=== PATIENT | female | born 1980 | race Caucasian/White ===

== ENCOUNTER 2017-12-22 21:34 | Emergency (ER) | END 2017-12-23 00:50 | disposition home or self-care (01) ==

== ENCOUNTER 2018-01-27 17:12 | Emergency (ER) | END 2018-01-27 19:42 | disposition home or self-care (01) ==

== ENCOUNTER 2018-01-30 11:32 | Emergency (ER) | END 2018-01-30 14:20 | disposition home or self-care (01) ==

== ENCOUNTER 2018-02-09 19:07 | Emergency (ER) | END 2018-02-09 22:15 | disposition home or self-care (01) ==

== ENCOUNTER 2018-03-16 14:14 | Emergency (ER) | END 2018-03-16 19:57 | disposition home or self-care (01) ==

== ENCOUNTER 2018-04-14 17:14 | Emergency (ER) | END 2018-04-14 19:28 | disposition home or self-care (01) ==

== ENCOUNTER 2018-09-13 18:39 | Inpatient (IN) | payer MEDICAID ==
[~2018-09-13] VITALS: Ht 162.6 cm; Wt 75.0 kg
[~2018-09-13 18:39] MED LIST: ONDA4TAB13 PO; PREN-93 PO
[2018-09-13 19:01] VITALS: BP 109/64; PULSE 114; RESP 18; Ht 162.6 cm; Wt 75.0 kg
[2018-09-13] MEDS ORDERED: LACTATED RINGER'S 1,000 ML IV PRN (19:15)
[2018-09-13] MEDS ORDERED: METHYLERGONOVINE 0.2 MG INJ IM PRN (19:30)
[2018-09-13] MEDS ORDERED: LIDOCAINE 1% (MPF) 30 ML INJ INJ PRN (19:30)
[2018-09-13] MEDS ORDERED: OXYTOCIN 30 UNITS/LR 500 ML IV SCH ×2 (19:30)
[2018-09-13] MEDS ORDERED: CARBOPROST 250 MCG INJ IM PRN (19:30)
[2018-09-13] MEDS ORDERED: OXYTOCIN 30 UNITS/LR 500 ML IV PRN (19:30)
[2018-09-13] MEDS ORDERED: MISOPROSTOL 200 MCG TAB PR PRN (19:30)
[2018-09-13] MEDS: LACTATED RINGER'S 1,000 ML IV SCH (19:43)
[2018-09-14] MEDS ORDERED: AMPICILLIN 2 GM/NS (PMX) 100 ML IV ONE (00:30)
[2018-09-14] MEDS: LACTATED RINGER'S 1,000 ML IV SCH ×2 (04:15→11:15)
[2018-09-14] MEDS: AMPICILLIN 1 GM/NS (PMX) 50 ML IV SCH ×4 (04:51→16:30)
[2018-09-14] MEDS ORDERED: OXYTOCIN 30 UNITS/LR 500 ML IV SCH ×2 (08:00→20:25)
[2018-09-14] MEDS ORDERED: FENTAnyl 2MCG/ML-ROPIV 0.2% 100 ML ONE (13:11)
--- NOTE | 2018-09-14 13:31 | PREAC ---
Date/Time of Note Date/Time of Note DATE: 09/14/18 TIME: 13:30 Anesthesia Eval and Record Evaluation Time Pre-Procedure Interview DATE: 09/14/18 TIME: 13:30 Age 38 Sex female NPO: 8 hrs Preoperative diagnosis Labor Pain Planned procedure Labor Epidural Past Medical History Past Medical History: Includes Heme: Anemia : : (4), Para: (3), Gestational age: (41) Surgery & Anesthesia Issues No known issue Meds Anticoagulation: No Beta Estefany within 24 hr: No Reason Beta Estefany not given: Pt. not on B-Estefany Reported Medications Ondansetron Hcl* (Zofran*) 4 Mg Tab, 4 MG PO NEEDED PRN for NAUSEA AND OR VOMITING, TAB 04/14/18 Vit No.124/Iron/FA ( Vitamin Tablet) 1 Each Tablet, 1 EACH PO DAILY, TAB 04/14/18 Current Medications Lactated Ringer's 1,000 ml @ 125 mls/hr Q8H IV Last administered on 09/14/18at 04:15; Admin Dose 125 MLS/HR; Start 09/13/18 at 19:15 Lidocaine (Xylocaine 1% (Mpf)) 30 ml ONCE PRN INJ .EPISIOTOMY; Start 09/13/18 at 19:30 Oxytocin/Lactated Ringer's 500 ml @ 500 mls/hr ONCE POST IV ; Start 09/13/18 at 19:30 Oxytocin/Lactated Ringer's 500 ml @ 125 mls/hr POST IV ; Start 09/13/18 at 19:30 Lactated Ringer's 1,000 ml @ 2,000 mls/hr Q30M PRN IV .ANESTHESIA Last administered on 09/14/18at 12:34; Admin Dose 2,000 MLS/HR; Start 09/13/18 at 19:15 Oxytocin/Lactated Ringer's 500 ml @ 0 mls/hr ONCE PRN IV .VAGINAL BLEEDING; Start 09/13/18 at 19:30 Methylergonovine Maleate (Methergine) 0.2 mg ONCE PRN IM .VAGINAL BLEEDING; Start 09/13/18 at 19:30 Carboprost Tromethamine (Hemabate) 250 mcg ONCE PRN IM .VAGINAL BLEEDING; Start 09/13/18 at 19:30 Misoprostol (Cytotec) 1,000 mcg ONCE PRN IN .VAGINAL BLEEDING; Start 09/13/18 at 19:30 Ampicillin 50 ml @ 100 mls/hr Q4H IV Last administered on 09/14/18at 09:13; Admin Dose 100 MLS/HR; Start 09/14/18 at 04:30 Oxytocin/Lactated Ringer's 500 ml @ 0 mls/hr FOR AUGMENTATION IV Last administered on 09/14/18at 08:17; Admin Dose 1 MLS/HR; Start 09/14/18 at 08:00 Meds reviewed: Yes Allergies Coded Allergies: morphine (Verified Allergy, Unknown, itchyness, 04/14/18) Allergies Reviewed: Yes Labs/Studies Labs Reviewed: Reviewed by anesthesiologist Result Diagram: 09/13/181939 Laboratory Tests 09/13/18 19:40 Blood Bank Test 09/13/18 19:40 Antibody Screen NEGATIVE Blood Type O POSITIVE Rh Immune Globulin Candidate NO test: N/A Studies: ECG (n/a), CXR (n/a) Pre-procedure Exam Last vitals Vital Signs Date Temp Pulse Resp B/P (MAP) Pulse Ox O2 O2 Flow FiO2 Time Delivery Rate 09/13/18 98.3 114 18 109/64 19:01 (79) Airway: Adequate mouth opening, Adequate thyromental dist Mallampati: Mallampati II Teeth: Normal Lung: Normal Heart: Normal ASA Physical Status ASA physical status: 2 Emergency: None Planned Anesthetic Neuraxial: Epidural Planned Pain Management Epidural Pre-operative Attestations Prior to commencing anesthesia and surgery, the patient was re-evaluated, there was verification of: *The patient's identity *The results of appropriate recent lab work and preoperative vital signs *The above evaluation not changing prior to induction *Anesthetic plan, risk benefits, alternative and complications discussed with patient/family; questions answered; patient/family understands, accepts and wishes to proceed. SAMUEL RIDDLE MD Sep 14, 2018 13:31
--- NOTE | 2018-09-14 13:33 | PAC ---
Date/Time of Note Date/Time of Note DATE: 09/14/18 TIME: 13:32 Post-Anesthesia Notes Post-Anesthesia Note Last documented vital signs Vital Signs Date Temp Pulse Resp B/P (MAP) Pulse Ox O2 O2 Flow FiO2 Time Delivery Rate 09/14/18 98.2 114 18 109/64 100 room air 13:27 (79) Activity: WNL Respiratory function: WNL Cardiovascular function: WNL Mental status: Baseline Pain reasonably controlled: Yes Hydration appropriate: Yes Nausea/Vomiting absent: Yes SAMUEL RIDDLE MD Sep 14, 2018 13:32
[2018-09-14] MEDS ORDERED: FENTAnyl 2MCG/ML-ROPIV 0.2% 100 ML BAG EPI SCH (14:00)
[2018-09-14] MEDS ORDERED: NALOXONE (0.4 MG/ML) INJ IV PRN (14:00)
--- NOTE | 2018-09-14 16:50 | HP ---
Date/Time of Note Date/Time of Note DATE: 09/14/18 TIME: 16:49 OB - History Hx of Present Free Text/Dictation at term inactive labor : 3 Para: 2 Care: Good Care Ultrasounds: Normal mid trimester US Obstetrical Complications: None Medical Complications: None Past Family/Social History * Past Medical, Surgical, Family and Obstetric Histories reviewed from chart. OB Admission Exam Vital Signs Vital Signs Vital Signs Date Temp Pulse Resp B/P (MAP) Pulse Ox O2 O2 Flow FiO2 Time Delivery Rate 09/13/18 98.3 114 18 109/64 19:01 (79) Physical Exam HEENT: WNL Heart: Rhythm Normal Lungs: Clear, Equal Abdomen: WNL Extremities: Normal Reflexes: Normal Cervical Dilatation: 10cm Effacement: 100% Station: +3 Amniotic Fluid: Clear Heart Rate: 130's Accelerations: Accelerations Present Decelerations: No Decelerations Contractions on Admission: None Intensity: Moderate Last 72 hours Lab Results CBC & BMP 09/13/18 19:40 OB Assessment/Plan Reason for admission: active labor Plan: Expectant Management TRICIA TRAN MD Sep 14, 2018 16:50
--- NOTE | 2018-09-14 16:52 | LDN ---
Date/Time of Note Date/Time of Note DATE: 09/14/18 TIME: 16:51 Delivery Summary Weeks of Gestation 40 Meconium: none Episiotomy: No Perineal laceration: 1 Anesthesia type: Epidural Estimated blood loss: 300 Sponge & Needle done & correct: Yes All needle counts correct: Yes Any foreign bodies felt in the: No TRICIA TRAN MD Sep 14, 2018 16:52
[2018-09-14 19:30] VITALS: BP 90/53; PULSE 83; RESP 18
[2018-09-14] MEDS: LACTATED RINGER'S 1,000 ML IV* SCH (20:25)
[2018-09-14] MEDS ORDERED: ZOLPIDEM 5 MG TAB PO PRN (20:30)
[2018-09-14] MEDS ORDERED: OXYTOCIN 30 UNITS/LR 500 ML IV PRN (20:30)
[2018-09-14] MEDS ORDERED: HYDROCODONE/APAP (5/325) TAB PO PRN (20:30)
[2018-09-14] MEDS ORDERED: WITCH HAZEL/GLYCERIN PAD PR PRN (20:30)
[2018-09-14] MEDS ORDERED: MISOPROSTOL 200 MCG TAB PR PRN (20:30)
[2018-09-14] MEDS ORDERED: SENNA/DOCUSATE NA (8.6MG/50MG) TAB PO PRN (20:30)
[2018-09-14] MEDS ORDERED: BENZOCAINE 20% 56 ML SPRAY TOP PRN (20:30)
[2018-09-14] MEDS ORDERED: DIPHENHYDRAMINE 25 MG CAP PO PRN (20:30)
[2018-09-14] MEDS ORDERED: METHYLERGONOVINE 0.2 MG INJ IM PRN (20:30)
[2018-09-14] MEDS ORDERED: MAGNESIUM HYDROXIDE 30ML CUP PO PRN (20:30)
[2018-09-14] MEDS ORDERED: LANOLIN HPA 1 PKT TOP PRN (20:30)
[2018-09-14] MEDS ORDERED: ACETAMINOPHEN 325 MG TAB PO PRN (20:30)
[2018-09-14] MEDS ORDERED: CARBOPROST 250 MCG INJ IM PRN (20:30)
[2018-09-14] MEDS: IBUPROFEN 800 MG TAB PO SCH (23:57)
[2018-09-15 04:00] VITALS: BP 91/52; PULSE 65; RESP 17
[2018-09-15] MEDS: LACTATED RINGER'S 1,000 ML IV* SCH (04:25)
[2018-09-15] MEDS: IBUPROFEN 800 MG TAB PO SCH ×4 (05:47→23:43)
[2018-09-15 09:10] VITALS: BP 86/57; PULSE 70; RESP 17
[2018-09-15 11:56] VITALS: BP 96/54; PULSE 72; RESP 20
[2018-09-15 15:30] VITALS: BP 94/51; PULSE 71; RESP 18
--- NOTE | 2018-09-15 19:39 | PN ---
Date/Time of Note Date/Time of Note DATE: 09/15/18 TIME: 19:38 OB Subjective Subjective Subjective PPD# 1 Patient is doing well. She denies nausea, vomiting, shortness of breath, chest pain, headache. She has been ambulating without difficulty, tolerating regular diet. Pain is well controlled on current medications OB Objective Objective Objective VS - Last 72 Hours, by Label Date Temp Pulse Resp B/P (MAP) Pulse Ox O2 O2 Flow FiO2 Time Delivery Rate 09/15/18 98.1 71 18 94/51 (65) 15:30 09/15/18 97.9 72 20 96/54 (68) Room Air 11:56 09/15/18 97.5 70 17 86/57 (67) Room Air 09:10 09/15/18 97.9 65 17 91/52 (65) Room Air 04:00 09/14/18 97.9 83 18 90/53 (65) Room Air 19:30 09/13/18 98.3 114 18 109/64 19:01 (79) General: AAO X 3, comfortable, NAD, appropriate mood and affect. ABD: +BS. Soft, non-tender. Uterus 2 cm below umbilicus Flank: No CVA tenderness (B/L) LE: Mild edema. No clubbing, cyanosis, thigh or calf tenderness (B/L). Homans 'sign is negative OB Assessment/Plan Other plan: 38 years old -0-0-3 s/p normal vaginal delivery. PPD#1 - AF, VSS - Contraception methods with R/B/A/FR discussed - Continue care - Discharge home tomorrow - Rx and instruction given - Follow up in 2 and 6 weeks with her primary OB GRICEL WESLEY Sep 15, 2018 19:39
--- NOTE | 2018-09-15 19:40 | DS ---
Date/Time of Note Date/Time of Note DATE: 09/15/18 TIME: 19:39 Obstetrical Discharge Record Final Diagnosis Final Diagnosis: Term delivered Other Final Diagnosis 38 years old -0-0-3 s/p normal vaginal delivery at 40 weeks. PPD#1. course is unremarkable she is ambulating and tolerating regular diet she is voiding without difficulty pain is controlled on current medication - AF, VSS - Contraception methods with R/B/A/FR discussed - Continue care - Discharge home tomorrow - Rx and instruction given - Follow up in 2 and 6 weeks with her primary OB Condition on Discharge Physical Assessment Last Vitals: Vital Signs Date Temp Pulse Resp B/P (MAP) Pulse Ox O2 O2 Flow FiO2 Time Delivery Rate 09/15/18 98.1 71 18 94/51 (65) 15:30 09/15/18 Room Air 11:56 Voiding: Yes Bowel Movement: Yes Breast: Soft, non-tender Fundus: Firm Calf Tenderness: No Patient Condition: Stable GRICEL WESLEY Sep 15, 2018 19:40
[2018-09-15 20:00] VITALS: BP 89/57; PULSE 72; RESP 18
[2018-09-16 03:50] VITALS: BP 102/51; PULSE 63; RESP 19
[2018-09-16] MEDS: IBUPROFEN 800 MG TAB PO SCH (05:42)
[2018-09-16 08:20] VITALS: BP 100/60; PULSE 75; RESP 18
[2018-09-16] MEDS ORDERED: DIPHTH/TET/ACEL PERTUSS (ADULT) 0.5 ML VIAL IM* ONE (09:00)
[2018-09-16] MEDS ORDERED: VARICELLA VACCINE LIVE/PF 1,350 UNIT/0.5 ML ML SC* ONE (09:00)
[2018-09-16] MEDS ORDERED: MEASLES,MUMPS,RUBELLA VACCINE INJ SC* ONE (09:00)
--- NOTE | 2018-09-17 13:02 | DELSUM ---
Delivery Summary A-C Datetime Report Generated by CPN: 09/17/2018 13:01 DELIVERY PERSONNEL Truck Technician: Jeanineemanarmond, [place] MATERNAL INFORMATION Delivery Anesthesia: Epidural Medications in Delivery: LR W/ 30 UNITS PITOCIN Delivery QBL (ml): 372 Placenta Cultured: No Maternal Complications: None LABOR SUMMARY EDC: 09/28/2018 00:00 No. Babies in Womb: 1 Attempted: No Labor Anesthesia: Epidural LABOR INFORMATION Onset of Labor: 09/13/2018 18:55 Complete Dilatation: 09/14/2018 16:08 Oxytocin: Augmentation Group B Beta Strep: Negative Antibiotics # of Doses: 3 Antibiotics Time of Last Dose: 09/14/2018 09:12 Steroids Given: None Reason Steroids Not Administered: Not Applicable MEMBRANES Membranes Rupture Method: Spontaneous Rupture of Membranes: 09/14/2018 14:22 Length of Rupture (hr): 2.37 Amniotic Fluid Color: Clear Amniotic Fluid Amount: Small Amniotic Fluid Odor: None STAGES OF LABOR Stage 1 hr: 21 Stage 1 min: 13 Stage 2 hr: 0 Stage 2 min: 36 Stage 3 hr: 0 Stage 3 min: 0 Total Time in Labor hr: 21 Total Time in Labor min: 49 VAGINAL DELIVERY Episiotomy: None Laceration Extension: First Degree Laceration Type: Perineal Laceration Repair: Yes Initial Vag Sponge Count: 10 Final Vag Sponge Count: 10 Initial Vag Sharps Count: 1 Final Vag Sharps Count: 1 Sponge Count Correct: Yes; Vaginal Sweep Performed Sharps Count Correct: Yes BABY A INFORMATION Infant Delivery Date/Time: 09/14/2018 16:44 Method of Delivery: Vaginal Born in Route : No : N/A Forceps: N/A Vacuum Extraction: N/A Shoulder Dystocia : N/A SHOULDER DYSTOCIA BABY A Infant Delivery Date/Time: 09/14/2018 16:44 PRESENTATION/POSITION BABY A Presentation: Cephalic Cephalic Presentation: Vertex Vertex Position: Left Occipital Anterior Breech Presentation: N/A PLACENTA INFORMATION BABY A Placenta Delivery Time : 09/14/2018 16:44 Placenta Method of Delivery: Spontaneous Placenta Status: Delivered SCORES BABY A Heart Rate 1 min: >100 bpm Resp Effort 1 min: Good Cry Reflex Irritability 1 min: Cough/Sneeze/Pulls Away Muscle Tone 1 min: Active Motion Color 1 min: Body [place], Extremit Blue Resuscitation Effort 1 min: Tactile Stimulation SCORE 1 MIN: 9 Heart Rate 5 min: >100 bpm Resp Effort 5 min: Good Cry Reflex Irritability 5 min: Cough/Sneeze/Pulls Away Muscle Tone 5 min: Active Motion Color 5 min: Body [place], Extremit Blue Resuscitation Effort 5 min: Tactile Stimulation SCORE 5 MIN: 9 INFANT INFORMATION BABY A Gestational Age at Delivery: 38.0 Gestational Status: Early Term- 37- 38.6 Weeks Infant Outcome : Liveborn Infant Condition : Stable Sex: Female IDENTIFICATION/MEDS BABY A ID Band Number: [id number] ID Band Location: Right Leg; Left Arm Sensor Applied: Yes Sensor Number: [id number] Sensor Location : Cord Clamp Vitamin K Given : Not Given Erythromycin Given: Not Given WEIGHT/LENGTH BABY A Birthweight (gm): 3315 Infant Weight (lb): 7 Weight (oz): 5 Length (in): 19.50 Length (cm): 49.53 CORD INFORMATION BABY A No. Cord Vessels: 3 Nuchal Cord : N/A Infant Suction: Mouth; Nose ASSESSMENT BABY A Infant Complications: None Physical Findings at Delivery: Within Normal Limits Infant Respirations: Appears Normal Pocket Setter Lockstitch/ALS Called : No Infant Care By: PATRICIA CARTAGENA Transferred To: Remains with Mother
== END 2018-09-16 12:55 | disposition home or self-care (01) | DRG 807 ==
LOC: OBT 18:39 → L-D 18:40 → OBT 19:14 → L-D 21:29 → PP1 09-14 18:50
PROVIDERS: ADMIT Obstetrics & Gynecology; ATTEND Obstetrics & Gynecology
PROC: 10E0XZZ Delivery of Products of Conception, External Approach (ICD-10-PCS; principal; 2018-09-14)
PROC: 0HQ9XZZ Repair Perineum Skin, External Approach (ICD-10-PCS; 2018-09-14)
DX: O48.0 Post-term pregnancy (principal); Z37.0 Single live birth; O70.0 First degree perineal laceration during delivery; Z3A.40 40 weeks gestation of pregnancy
CPT/HCPCS: 62322; 85025; 85610; 85730; 86592; 86850; 86900; 86901; 87340; 90716; G0463; J0290; J2590; J3010; J7120

== ENCOUNTER 2018-11-02 11:48 | Emergency (ER) | payer MEDICAID ==
[~2018-11-02] VITALS: Ht 162.6 cm; Wt 68.1 kg
[~2018-11-02 11:48] MED LIST changes: -ONDA4TAB13 PO
[2018-11-02 11:49] VITALS: Ht 162.6 cm; Wt 68.1 kg
[2018-11-02] MEDS ORDERED: SOD CHLORIDE 0.9% 1,000 ML IV STA (12:02)
[2018-11-02] MEDS ORDERED: ONDANSETRON 4 MG INJ IV STA (12:02)
[2018-11-02] MEDS ORDERED: MECLIZINE 12.5 MG TAB PO ONE (12:30)
[2018-11-02] MEDS ORDERED: CEPH-443 PO (13:59)
[2018-11-02] MEDS ORDERED: MECL12.574 PO (13:59)
[2018-11-02] MEDS ORDERED: ONDA4TAB14 PO (13:59)
[2018-11-02 14:05] VITALS: BP 104/67; PULSE 59; RESP 18
--- NOTE | 2018-11-02 14:12 | ERD ---
ER Documentation Chief Complaint Chief Complaint n/v and dizziness x 1 hour HPI 38-year-old female presenting with dizziness and nausea. Patient states that earlier today the room suddenly started spinning and she had multiple episodes of vomiting. She denies any fever. Has not taken medications for symptoms. Denies chest pain or shortness of breath. Denies any fevers. Denies other medical problems. NKDA. Surgical history denies. Social history denies ROS All systems reviewed and are negative except as per history of present illness. Medications Home Meds Active Scripts Cephalexin* (Keflex*) 500 Mg Capsule, 500 MG PO QID for 7 Days, CAP Prov:LAVON AGUSTIN PA-C 11/02/18 Ondansetron (Ondansetron Odt) 4 Mg Tab.rapdis, 4 MG PO Q6H PRN for NAUSEA AND/OR VOMITING, #10 TAB Prov:LAVON AGUSTIN PA-C 11/02/18 Meclizine Hcl* (Antivert*) 12.5 Mg Tab, 12.5 MG PO Q6H PRN for DIZZINESS, #20 TAB Prov:LAVON AGUSTIN PA-C 11/02/18 Reported Medications Vit No.124/Iron/FA ( Vitamin Tablet) 1 Each Tablet, 1 EACH PO DAILY, TAB 04/14/18 Allergies Allergies: Coded Allergies: morphine (Verified Allergy, Unknown, itchyness, 04/14/18) PMhx/Soc History of Surgery: Yes (ECTOPIC 2010) Anesthesia Reaction: No Hx Neurological Disorder: No Hx Respiratory Disorders: No Hx Cardiac Disorders: Yes (ARRHYTHMIAS ) Hx Psychiatric Problems: No Hx Miscellaneous Medical Probl: Yes (HYPERTHYROID) Hx Alcohol Use: No Hx Substance Use: No Hx Tobacco Use: No FmHx Family History: No diabetes, No coronary disease, No other Physical Exam Vitals Vital Signs Date Temp Pulse Resp B/P (MAP) Pulse Ox O2 O2 Flow FiO2 Time Delivery Rate 11/02/18 98.1 59 18 104/67 98 Room Air 14:05 (79) 11/02/18 98.0 84 19 132/81 98 11:49 (98) Physical Exam GENERAL: The patient is well-appearing, well-nourished, in no acute distress HEENT: Atraumatic. Conjunctivae are pink. Pupils equal, round, and reactive to light. There is no scleral icterus. Tympanic membranes clear bilaterally. Oropharynx clear. No nystagmus or photophobia. CHEST: Clear to auscultation bilaterally. There are no rales, wheezes or rhonchi. HEART: Regular rate and rhythm. No murmurs, clicks, rubs or gallops. ABDOMEN:Soft, nontender and nondistended. Good bowel sounds. No rebound or guarding. No gross peritonitis. No gross organomegaly or masses. No Munguia sign or McBurney point tenderness. NEUROLOGIC: Alert and oriented. Cranial nerves II through XII intact. Motor strength in all 4 extremities with 5 out of 5 strength. Sensation grossly intact. Normal speech and gait. SKIN: There is no apparent rash or petechiae. The skin is warm and dry. Result Diagram: 11/02/18 1226 11/02/18 1227 Results 24 hrs Laboratory Tests Test 11/02/18 12:26 11/02/18 12:27 11/02/18 13:15 11/02/18 13:22 White Blood 7.7 10^3/ul Count Red Blood Count 4.17 10^6/ul Hemoglobin 12.5 g/dl Hematocrit 37.0 % Mean Corpuscular 88.7 fl Volume Mean Corpuscular 30.0 pg Hemoglobin Mean Corpuscular 33.8 g/dl Hemoglobin Melissa nt Red Cell 11.9 % Distribution Width Platelet Count 212 10^3/UL Mean Platelet 11.8 fl Volume Immature 0.400 % Granulocytes % Neutrophils % 71.0 % Lymphocytes % 21.7 % Monocytes % 5.7 % Eosinophils % 0.9 % Basophils % 0.3 % Nucleated Red 0.0 /100WBC Blood Cells % Immature 0.030 10^3/ul Granulocytes # Neutrophils # 5.5 10^3/ul Lymphocytes # 1.7 10^3/ul Monocytes # 0.4 10^3/ul Eosinophils # 0.1 10^3/ul Basophils # 0.0 10^3/ul Nucleated Red 0.0 10^3/ul Blood Cells # Sodium Level 141 mmol/L Potassium Level 4.0 mmol/L Chloride Level 108 mmol/L Carbon Dioxide 25 mmol/L Level Anion Gap 8 Blood Urea 12 mg/dl Nitrogen Creatinine 0.55 mg/dl Est Glomerular > 60 mL/min Filtrat Rate mL/min Glucose Level 116 mg/dl Calcium Level 9.1 mg/dl Total Bilirubin 1.1 mg/dl Direct Bilirubin 0.00 mg/dl Indirect 1.1 mg/dl Bilirubin Aspartate Amino 19 IU/L Transf (AST/SGOT ) Alanine 25 IU/L Aminotransferase (ALT/SGPT) Alkaline 94 IU/L Phosphatase Troponin I < 0.012 ng/ml Total Protein 7.4 g/dl Albumin 4.2 g/dl Globulin 3.20 g/dl Albumin/Globulin 1.31 Ratio Lipase 39 U/L Urine Color YELLOW Urine Clarity CLOUDY Urine pH 6.0 Urine Specific 1.018 [place] Urine Ketones NEGATIVE mg/dL Urine Nitrite NEGATIVE mg/dL Urine Bilirubin NEGATIVE mg/dL Urine NEGATIVE mg/dL Urobilinogen Urine Leukocyte 3+ Martha/ul Esterase Urine 5 /HPF Microscopic RBC Urine 12 /HPF Microscopic WBC Urine Squamous FEW /HPF Epithelial Cells Urine Bacteria FEW /HPF Urine Mucus FEW /HPF Urine Hemoglobin NEGATIVE mg/dL Urine Glucose NEGATIVE mg/dL Urine Total NEGATIVE mg/dl Protein POC Beta HCG, NEGATIVE Qualitative Current Medications Medications Dose Sig/Teresa Start Time Status Last (Trade) Ordered Route PRN Stop Time Admin Dose Reason Admin Sodium 1,000 ml @ Q1H STAT 11/02/18 DC 11/02/18 Chloride 1,000 mls/hr IV 12:02 12:35 11/02/18 13:01 Ondansetron 4 mg ONCE STAT 11/02/18 DC 11/02/18 HCl (Zofran IV 12:02 12:35 Inj) 11/02/18 12:05 Meclizine 12.5 mg ONCE ONCE 11/02/18 DC 11/02/18 HCl PO 12:30 12:35 (Antivert) 11/02/18 12:31 Procedures/MDM ER course: 1 L normal saline given in ED. Zofran given in ED. Meclizine given in ED. Upon reevaluation patient stated her symptoms improved and she no longer had vomiting or dizziness. DIAGNOSTIC IMAGING REPORT Patient: NAE ZABALA : 1980 Age: 38 Sex: F MR #: [id number] DOS: 11/02/18 1202 Ordering MD: LEXII AGUSTIN PA-C Location: [facility] Room/Bed: PROCEDURE: CT Brain without contrast. CLINICAL INDICATION: Dizziness. TECHNIQUE: A CT of the brain without contrast was performed utilizing axial sections from the skull base through the vertex. One or more the following does reduction techniques were utilized: Automated exposure control, adjustment of the mA/ or kV according to patient's size, or use of iterative reconstruction technique. Total exam CTDIvol is 38 MGy and DLP is 555 mGy-cm. DICOM images are available. COMPARISON: None available. FINDINGS: The inferior right temporal lobe is not completely imaged. The ventricles and sulci are age-appropriate. There is no intracranial hemorrhage, mass effect or midline shift. No abnormal intra-axial or extra- axial fluid collections are seen. The cantor/white matter differentiation is preserved. There is prominent left paramedian retrocerebellar CSF space measuring up to 1.8 centimeter in AP diameter which may represent fátima cisterna magna versus arachnoid cyst. No acute skull abnormality is noted. The visualized paranasal sinuses are essentially clear. IMPRESSION: 1. No acute intracranial hemorrhage, transcortical infarction or mass effect. 2. Prominent left paramedian retrocerebellar CSF space which may represent fátima cisterna magna versus arachnoid cyst. EKG: Rate/Rhythm: 81 bpm Normal Sinus Rhythm QRS, ST, T-waves: No changes consistent w/ acute ischemia Impression: No evidence of ischemia or arrhythmia MDM: 38 yr old female complaining of dizziness and vomiting that has resolved in the ER. Patient has normal blood work with normal neuro exam. Patient is recommended to follow up with PMD and discharged with supportive medication. Patient's symptoms resolved in the ER. All questions answered at discharge. All questions answered at discharge. Departure Diagnosis: Primary Impression: Dizziness Condition: Stable Patient Instructions: Dizziness, Unk Cause Additional Instructions: FOLLOW UP WITH YOUR PRIMARY CARE PHYSICIAN TOMORROW.Return to this facility if you are not improving as expected. LAVON AGUSTIN PA-C Nov 02, 2018 14:12
== END 2018-11-02 14:16 | disposition home or self-care (01) ==
LOC: FTE 11:48
DX: R42 Dizziness and giddiness (principal); R11.2 Nausea with vomiting, unspecified
CPT/HCPCS: 36415; 70450; 80053; 81001; 81025; 83690; 84484; 85025; 93005; 96361; 96374; J2405; J7030; Z7502; Z7610